=== PATIENT | male | born 1995 | race Two or more races ===

== ENCOUNTER 2024-06-28 15:19 | Inpatient (IN) | payer OTHER ==
[~2024-06-28] VITALS: Ht 172.7 cm; Wt 81.1 kg
[2024-06-28 19:19] LABS: ALCOHOL, URINE DRUG SCREEN NEGATIVE (NEGATIVE); AMPHET/METH SCREEN,URINE NEGATIVE (NEGATIVE); BARBITURATE SCREEN, URINE NEGATIVE (NEGATIVE); BENZODIAZEPINES SCREEN,URINE NEGATIVE (NEGATIVE); CANNABINOID SCREEN,URINE NEGATIVE (NEGATIVE); COCAINE SCREEN,URINE NEGATIVE (NEGATIVE); METHADONE SCREEN, URINE NEGATIVE (NEGATIVE); OPIATE SCREEN,URINE NEGATIVE (NEGATIVE); PHENCYCLIDINE SCREEN,URINE NEGATIVE (NEGATIVE)
[2024-06-28 19:22] LABS: BASOPHILS % (AUTO) 0.5 % (0.0-2.0); EOSINOPHILS % (AUTO) 0.1 % (1.0-6.0); HEMATOCRIT 39.8 % (41-53); HEMOGLOBIN 13.6 g/dL (13.5-17.5); LYMPHOCYTES # (AUTO) 2.1 K/uL (1.0-4.8); LYMPHOCYTES % (AUTO) 22.9 % (22.0-44.0); MEAN CORPUSCULAR HEMOGLOBIN 28.3 pg (26.0-34.0); MEAN CORPUSCULAR HGB CONC 34.1 G/dL (31.0-37.0); MEAN CORPUSCULAR VOLUME 83 fL (80-100); MONOCYTES # (AUTO) 0.5 K/uL (0.1-1.0); MONOCYTES % (AUTO) 5.4 % (2.0-9.0); NEUTROPHILS # (AUTO) 6.5 K/uL (1.8-7.7); NEUTROPHILS % (AUTO) 71.1 % (40.0-70.0); PLATELET COUNT (AUTO) 226 K/uL (150-450); RED BLOOD CELL COUNT(AUTO) 4.79 MIL/uL (4.50-5.90); RED CELL DISTRIBUTION WIDTH 13.9 % (11.5-14.5); WHITE BLOOD COUNT (AUTO) 9.1 K/uL (4.5-11.0)
[2024-06-28 19:32] LABS: ANION GAP 12 mmol/L (8-16); CALCIUM, TOTAL 9.1 mg/dL (8.8-10.5); CARBON DIOXIDE 27 mmol/L (22-29); CHLORIDE 100 mmol/L (98-107); CREATININE 0.97 mg/dL (0.60-1.30); GLOMERULAR FILTR. RATE CALC > 60 mL/min (>60); GLUCOSE,RANDOM 92 mg/dL (70-110); POTASSIUM 3.6 mmol/L (3.5-5.1); SODIUM SERUM 139 mmol/L (136-145); UREA NITROGEN, BLOOD 8 mg/dL (7-18)
[2024-06-28] MEDS ORDERED: ACETAMINOPHEN 325 MG TABLET PO PRN (22:45)
[2024-06-28] MEDS ORDERED: BISACODYL 10 MG RECTAL RECTAL SUPPOSITORY PR PRN (22:45)
[2024-06-28] MEDS ORDERED: IPRATROPIUM BROMIDE 0.5 MG/2.5 ML NEB SOLUTION NEB PRN (22:45)
[2024-06-28] MEDS ORDERED: ALBUTEROL SULFATE 2.5 MG/0.5 ML NEB SOLUTION NEB PRN (22:45)
[2024-06-28] MEDS ORDERED: MAGNESIUM HYDROXIDE SUSPENSION 30 ML UDCUP PO PRN (22:45)
[2024-06-28] MEDS ORDERED: ONDANSETRON HCL 4 MG/2 ML VIAL IVP PRN (22:45)
[2024-06-28] MEDS ORDERED: ZOLPIDEM TARTRATE 5 MG TABLET PO PRN (22:45)
[2024-06-28 23:52] VITALS: BP 126/79; PULSE 80; RESP 18; TEMP 98.4; O2SAT 98
[2024-06-29] VITALS (7 sets, daily range): BP systolic 117–130; BP diastolic 59–75; PULSE 65–78; RESP 16–18; TEMP 98.1–98.4; O2SAT 97–100
[2024-06-29] MEDS: PANTOPRAZOLE SODIUM 40 MG DR TABLET PO SCH (09:00)
[2024-06-29] MEDS ORDERED: SODIUM CHLORIDE 3% 15 ML NEB SOLUTION NEB ONE (10:11)
[2024-06-29 10:57] LABS: PROTHROMBIN TIME 10.9 SEC (9.4-11.6)
[2024-06-29 13:34] LABS: MTB PCR w/Rif. Resistance-SPUT NOT DETECTED (Not Detectd)
[2024-06-30] VITALS: BP 120/70; PULSE 70; RESP 18; TEMP 98.6; O2SAT 98
[2024-06-30] MEDS ORDERED: SODIUM CHLORIDE 3% 15 ML NEB SOLUTION NEB ONE (04:24)
[2024-06-30 04:29] VITALS: BP 122/67; PULSE 91; RESP 18; TEMP 97.7; O2SAT 100
[2024-06-30] MEDS ORDERED: FentaNYL CITRATE PF 100 MCG/2 ML VIAL ONE (08:53)
[2024-06-30] MEDS ORDERED: LIDOCAINE/PF 1% 30 ML VIAL ONE (08:54)
[2024-06-30] MEDS ORDERED: MIDAZOLAM HCL 2 MG/2 ML VIAL ONE (08:54)
[2024-06-30 12:00] VITALS: BP 112/71; PULSE 87; RESP 18; TEMP 97.7; O2SAT 99
[2024-06-30] MEDS: MIDAZOLAM HCL 2 MG/2 ML VIAL IVP ONE (15:24)
[2024-06-30] MEDS: FentaNYL CITRATE PF 100 MCG/2 ML VIAL IVP ONE (15:24)
[2024-06-30 20:00] VITALS: BP 119/66; PULSE 69; RESP 18; TEMP 98.1; O2SAT 100
[2024-07-01] VITALS: BP 122/70; PULSE 70; RESP 18; TEMP 98.6; O2SAT 98
[2024-07-01 04:06] LABS: QUANTIFERON+, Nil Value 0.02 IU/mL; QUANTIFERON+,Mitogen Value 9.34 IU/mL; QUANTIFERON+,TB1 Antigen Value >10.00 IU/mL; QUANTIFERON+,TB2 Antigen Value >10.00 IU/mL; QUANTIFERON, TB GOLD PLUS Positive (Negative)
[2024-07-01 08:05] VITALS: BP 129/78; PULSE 89; RESP 16; TEMP 97.2; O2SAT 99
[2024-07-01 20:00] VITALS: BP 117/55; PULSE 69; RESP 20; TEMP 97.6; O2SAT 97
[2024-07-02] VITALS: BP 120/58; PULSE 71; RESP 18; TEMP 97.6; O2SAT 98
[2024-07-02 11:44] VITALS: BP 127/61; PULSE 71; RESP 18; TEMP 98.1; O2SAT 98
[2024-07-02] MEDS: PYRAZINAMIDE 500 MG TABLET PO SCH (15:13)
[2024-07-02] MEDS: ISONIAZID 300 MG TABLET PO SCH (15:14)
[2024-07-02] MEDS: PYRIDOXINE HCL 50 MG TABLET PO SCH (15:14)
[2024-07-02] MEDS: ETHAMBUTOL HCL 400 MG TABLET PO SCH (15:14)
[2024-07-02] MEDS: rifAMPin 300 MG CAPSULE PO SCH (15:14)
[2024-07-02 16:23] VITALS: BP 112/70; PULSE 84; RESP 18; TEMP 98.4; O2SAT 95
[2024-07-02 20:00] VITALS: BP 127/67; PULSE 68; RESP 17; TEMP 98.4; O2SAT 100
[2024-07-03 05:25] VITALS: BP 118/67; PULSE 78; RESP 19; TEMP 97.7; O2SAT 99
[2024-07-03 07:20] LABS: ANION GAP 7 mmol/L (8-16); BASOPHILS % (AUTO) 0.5 % (0.0-2.0); CALCIUM, TOTAL 9.2 mg/dL (8.8-10.5); CARBON DIOXIDE 30 mmol/L (22-29); CHLORIDE 101 mmol/L (98-107); CREATININE 0.97 mg/dL (0.60-1.30); EOSINOPHILS % (AUTO) 0.8 % (1.0-6.0); GLOMERULAR FILTR. RATE CALC > 60 mL/min (>60); GLUCOSE,RANDOM 83 mg/dL (70-110); HEMATOCRIT 41.3 % (41-53); HEMOGLOBIN 14.1 g/dL (13.5-17.5); LYMPHOCYTES # (AUTO) 2.3 K/uL (1.0-4.8); LYMPHOCYTES % (AUTO) 28.1 % (22.0-44.0); MEAN CORPUSCULAR HEMOGLOBIN 28.6 pg (26.0-34.0); MEAN CORPUSCULAR HGB CONC 34.3 G/dL (31.0-37.0); MEAN CORPUSCULAR VOLUME 83 fL (80-100); MONOCYTES # (AUTO) 0.5 K/uL (0.1-1.0); MONOCYTES % (AUTO) 5.5 % (2.0-9.0); NEUTROPHILS # (AUTO) 5.4 K/uL (1.8-7.7); NEUTROPHILS % (AUTO) 65.1 % (40.0-70.0); PLATELET COUNT (AUTO) 214 K/uL (150-450); POTASSIUM 4.4 mmol/L (3.5-5.1); RED BLOOD CELL COUNT(AUTO) 4.95 MIL/uL (4.50-5.90); RED CELL DISTRIBUTION WIDTH 14.2 % (11.5-14.5); SODIUM SERUM 138 mmol/L (136-145); UREA NITROGEN, BLOOD 13 mg/dL (7-18); WHITE BLOOD COUNT (AUTO) 8.4 K/uL (4.5-11.0)
[2024-07-03] MEDS: PYRAZINAMIDE 500 MG TABLET PO SCH (10:05)
[2024-07-03 10:29] VITALS: BP 124/78; PULSE 85; RESP 18; TEMP 97.7; O2SAT 98
[2024-07-03 20:00] VITALS: BP 115/62; PULSE 100; RESP 18; TEMP 98.1; O2SAT 61
[2024-07-04 08:00] VITALS: BP 131/86; PULSE 78; RESP 18; TEMP 98.2; O2SAT 100
[2024-07-04 12:08] VITALS: BP 123/65; PULSE 72; RESP 17; TEMP 98.2; O2SAT 96
[2024-07-04 16:51] VITALS: BP 116/63; PULSE 61; RESP 18; TEMP 98.1; O2SAT 96
[2024-07-04 20:00] VITALS: BP 116/61; PULSE 69; RESP 17; TEMP 98.2; O2SAT 98
[2024-07-05 00:45] VITALS: BP 107/66; PULSE 61; RESP 17; TEMP 98.6; O2SAT 99
[2024-07-05 04:39] VITALS: BP 115/57; PULSE 77; RESP 16; TEMP 97.7; O2SAT 99
[2024-07-05 08:00] VITALS: BP 121/71; PULSE 78; RESP 18; TEMP 98.2; O2SAT 100
[2024-07-05 12:00] VITALS: BP 122/68; PULSE 79; RESP 18; TEMP 99; O2SAT 99
[2024-07-05 16:00] VITALS: BP 118/56; PULSE 98; RESP 18; TEMP 98.8; O2SAT 99
[2024-07-05 20:00] VITALS: BP 120/64; PULSE 68; RESP 19; TEMP 98.4; O2SAT 99
[2024-07-06] VITALS: BP 104/66; PULSE 60; RESP 18; TEMP 98.2; O2SAT 97
[2024-07-06 04:00] VITALS: BP 118/73; PULSE 61; RESP 18; TEMP 97.7; O2SAT 100
[2024-07-06 08:00] VITALS: BP 130/91; PULSE 92; RESP 16; TEMP 98.6; O2SAT 98
[2024-07-06 20:52] VITALS: BP 114/64; PULSE 82; RESP 18; TEMP 98.6; O2SAT 98
[2024-07-07 04:54] VITALS: BP 130/90; PULSE 86; RESP 18; TEMP 97.7; O2SAT 99
[2024-07-07 07:38] VITALS: BP 124/74; PULSE 60; RESP 18; TEMP 97.9; O2SAT 100
[2024-07-07] MEDS ORDERED: ETHA400T25 PO (14:05)
[2024-07-07] MEDS ORDERED: ISON300T90 PO (14:06)
[2024-07-07] MEDS ORDERED: PYRA500T33 PO (14:06)
[2024-07-07] MEDS ORDERED: ACET-2247 PO (14:07)
[2024-07-07] MEDS ORDERED: RIFA300C63 PO (14:08)
[2024-07-07] MEDS ORDERED: MAGN-169 PO (14:08)
== END 2024-07-07 16:44 | DRG 179 ==
LOC: EMS 15:29 → EDH 22:42 → 5N 23:45 → 4E 07-06 16:05
PROVIDERS: ADMIT Hospitalist; ATTEND Hospitalist
PROC: 0BBG3ZX Excision of Left Upper Lung Lobe, Percutaneous Approach, Diagnostic (ICD-10-PCS; principal; 2024-06-30)
DX: A15.9 Respiratory tuberculosis unspecified (principal); R91.8 Other nonspecific abnormal finding of lung field; Z78.9 Other specified health status
CPT/HCPCS: 32408; 71045; 71046; 71250; 80048; 80307; 85025; 85610; 86480; 87015; 87070; 87205; 87206; 87389; 87556; 88305; 94640; 99285; G0378; J2250; J3010; J3490; 36415-L1; 36415-TC